=== PATIENT | male | born 1975 | race Caucasian/White ===

== ENCOUNTER 2021-12-14 15:52 | Emergency (ER) | payer MEDICAID ==
[~2021-12-14] VITALS: Ht 160 cm; Wt 72.6 kg
--- NOTE | 2021-12-14 18:00 | NUR ---
Patient walked-in at the ER, noted with epigatric pain with 9/10 scale. nausea and vomiting noted. Saline lock in place. Labs drawn as ordered, and UA collected.
[2021-12-14 18:32] LABS: HEMATOCRIT 43.9 % (36.7-47.1); MEAN CORPUSCULAR HEMOGLOBIN 30.4 uug (23.8-33.4); MEAN CORPUSCULAR VOLUME 88.5 fL (73.0-96.2); PLATELET COUNT (AUTO) 240 K/uL (152-348)
[2021-12-14 18:34] LABS: *BILIRUBIN,URIN NEGATIVE (NEGATIVE); *BLOOD, URINE NEGATIVE (NEGATIVE); *CLARITY,URINE CLEAR (CLEAR); *COLOR,URINE YELLOW (YELLOW); *KETONES,URINE NEGATIVE (NEGATIVE); LEUKOCYTE ESTERASE ,URINE NEGATIVE (NEGATIVE); NITRITE, URINE NEGATIVE (NEGATIVE); PH,URINE 5.5 (5.0-8.0); UGLUCOSE 2+ (NEGATIVE)
[2021-12-14] MEDS ORDERED: ONDANSETRON 4 MG/2 ML VIAL ONE (18:34)
[2021-12-14] MEDS ORDERED: HYDROMORPHONE 1 MG/1 ML DISP.SYRIN ONE ×2 (18:35→19:52)
[2021-12-14 18:38] LABS: CREATININE 0.7 mg/dL (0.6-1.3); POTASSIUM 3.7 mmol/L (3.5-5.1)
--- NOTE | 2021-12-14 18:40 | NUR ---
Administered Zofran and Diluadid as ordered.
[2021-12-14] MEDS ORDERED: ONDANSETRON 4 MG/2 ML VIAL IV ONE (18:45)
[2021-12-14] MEDS ORDERED: HYDROMORPHONE 1 MG/1 ML DISP.SYRIN IV ONE ×2 (18:45→20:00)
[2021-12-14 18:48] LABS: BILIRUBIN,DIRECT 0.1 mg/dL (0.0-0.2); BILIRUBIN,TOTAL 0.6 mg/dL (0.2-1.0); TOTAL PROTEIN, SERUM 7.8 g/dL (6.4-8.2)
--- NOTE | 2021-12-14 19:16 | NUR ---
Per patient, pain level is improved to 7/10 scale. noted with crying. will endorse to the next shift for continuity of care. All MD orders carried out prior to end of shift.
--- NOTE | 2021-12-14 19:18 | NUR ---
Shift report given to the night RN.
--- NOTE | 2021-12-14 19:30 | NUR ---
Patient's daughter at bedside
[2021-12-14 20:11] LABS: *OCCULT BLOOD STOOL NEGATIVE (NEGATIVE)
[2021-12-14] MEDS ORDERED: diphenhydrAMINE 50 MG/1 ML VIAL IV ONE (20:15)
[2021-12-14] MEDS ORDERED: IOHEXOL 300MG/ML 100 ML INFUS..BTL ONE (20:17)
[2021-12-14] MEDS ORDERED: SWABABLE VALVE TRANSFER SET EA MC ONE (20:18)
[2021-12-14] MEDS ORDERED: IV NORMAL SALINE 250 ML IV ONE (20:18)
[2021-12-14] MEDS ORDERED: diphenhydrAMINE 50 MG/1 ML VIAL ONE (20:20)
--- NOTE | 2021-12-14 20:32 | NUR ---
Patient taken to CT by fingernail technician
--- NOTE | 2021-12-14 20:39 | NUR ---
Patient back from CT
[2021-12-14] MEDS ORDERED: HYDR-4209 PO (23:01)
--- NOTE | 2021-12-14 23:16 | NUR ---
Patient does not wish to proceed with medical care recommended by Dr. Betancourt. Patient given information related to possible complications, up to and including , which could occur as a result of leaving the hospital at this time. Patient verbalizes understanding of risks involved due to leaving against medical advice. Patient has signed AMA form. Patient is a/ox4, NAD noted. Patient is able to walk with steady gait.
[2021-12-14 23:17] VITALS: BP 143/87
== END 2021-12-14 23:17 | disposition left against medical advice (07) ==
LOC: ER 15:52
DX: R10.13 Epigastric pain (principal); U07.1 COVID-19; Z90.49 Acquired absence of other specified parts of digestive tract
CPT/HCPCS: 99285; 74177; 96374; 71045; 96375; 87426; 82270; 80076; 80048; 81003; 83690; 85025; 36415; 96376; J1200; J2405; Q9967; J1170 ×2; A4663

== ENCOUNTER 2021-12-24 00:56 | Emergency (ER) | payer MEDICAID ==
[~2021-12-24] VITALS: Ht 162.6 cm; Wt 72.6 kg
[~2021-12-24 00:56] MED LIST: HYDR-4209 PO
[2021-12-24] MEDS ORDERED: PROCHLORPERAZINE EDISYLATE 10 MG/2 ML VIAL IV ONE (02:00)
[2021-12-24] MEDS ORDERED: HYDROMORPHONE 1 MG/1 ML DISP.SYRIN IV ONE ×2 (02:00→04:00)
[2021-12-24] MEDS ORDERED: IV NORMAL SALINE 1000 ML BAG IV ONE (02:00)
[2021-12-24] MEDS ORDERED: PROCHLORPERAZINE EDISYLATE 10 MG/2 ML VIAL ONE (02:08)
[2021-12-24] MEDS ORDERED: HYDROMORPHONE 2 MG/1 ML DISP.SYRIN ONE (02:08)
[2021-12-24 02:30] LABS: HEMATOCRIT 43.3 % (36.7-47.1); MEAN CORPUSCULAR HEMOGLOBIN 30.6 uug (23.8-33.4); MEAN CORPUSCULAR VOLUME 87.6 fL (73.0-96.2); PLATELET COUNT (AUTO) 277 K/uL (152-348)
[2021-12-24 02:55] LABS: CARBON DIOXIDE 27 mmol/L (21-32); CHLORIDE 102 mmol/L (98-107); CREATININE 0.8 mg/dL (0.6-1.3); GLUCOSE 228 mg/dL (74-106); POTASSIUM 3.5 mmol/L (3.5-5.1); UREA NITROGEN, BLOOD 8 mg/dL (7-18)
[2021-12-24 03:03] LABS: ALANINE AMINOTRANSFERASE 56 U/L (16-63); ALKALINE PHOSPHATASE 141 U/L (50-136); ASPARTATE AMINOTRANSFERASE 20 U/L (15-37); BILIRUBIN,DIRECT < 0.1 mg/dL (0.0-0.2); BILIRUBIN,TOTAL 0.3 mg/dL (0.2-1.0); TOTAL PROTEIN, SERUM 7.5 g/dL (6.4-8.2)
[2021-12-24 03:13] LABS: LIPASE 81 U/L (73-393)
[2021-12-24] MEDS ORDERED: HYDROMORPHONE 1 MG/1 ML DISP.SYRIN ONE (03:46)
[2021-12-24] MEDS ORDERED: SWABABLE VALVE TRANSFER SET EA MC ONE (03:56)
[2021-12-24] MEDS ORDERED: IOHEXOL 300MG/ML 100 ML INFUS..BTL ONE (03:56)
[2021-12-24] MEDS ORDERED: IV NORMAL SALINE 250 ML IV ONE (03:56)
[2021-12-24] MEDS ORDERED: MAGNESIUM SULFATE/D5W 200 ML ONE (04:00)
[2021-12-24] MEDS: MAGNESIUM SULFATE/D5W 100 ML IV SCH ×2 (04:04→05:05)
[2021-12-24] MEDS ORDERED: OXYC-128 PO (06:41)
[2021-12-24] MEDS ORDERED: PROC10TA29 PO (06:41)
--- NOTE | 2021-12-24 06:57 | NUR ---
Patient discharged to home in stable condition. Written and verbal after care instructions given. Patient verbalizes understanding of instructions. Stressed follow up or return to ER for worsening s/s. Patient is a/ox4, NAD noted. Patient is able to walk with steady gait
[2021-12-24 06:58] VITALS: BP 143/81
== END 2021-12-24 06:58 | disposition home or self-care (01) ==
LOC: ER 01:00
DX: K86.3 Pseudocyst of pancreas (principal); E83.42 Hypomagnesemia; Z90.49 Acquired absence of other specified parts of digestive tract; R03.0 Elevated blood-pressure reading, without diagnosis of hypertension; E11.9 Type 2 diabetes mellitus without complications
CPT/HCPCS: 99285; 74177; 96365; 96375; 96361; 96366; 80076; 80048; 83690; 83735; 85025; 84484; 36415; 93005; 96376; 83605; J3475; Q9967; J0780; J1170 ×2; J7040; A4663